=== PATIENT | male | born 1960 | race Caucasian/White ===

== ENCOUNTER 2020-05-25 17:40 | Emergency (ER) | payer SELFPAY ==
[~2020-05-25] VITALS: Ht 182.9 cm; Wt 104.5 kg
--- NOTE | 2020-05-25 18:06 | NUR ---
[facility] FROM [facility]. PT REPORTS DRINKING 1 PINT OF VODKA TODAY AND HAS BEEN THINKING ABOUT KILLING HIMSELF. "I WOULD USE A GUN, I DO NOT HAVE A GUN BUT MY FRIEND HAS ONE" PT IN ROOM IN [facility]. ROOM IS SAFE AND SECURE. SITTER OUTSIDE ROOM. URINE SENT TO LAB.
--- NOTE | 2020-05-25 18:08 | NUR ---
LAB IN ROOM
[2020-05-25 18:27] LABS: AMPHETAMINE SCREEN, URINE Negative (Negative); BARBITURATE SCREEN, URINE Negative (Negative); BENZODIAZEPINE SCREEN, URINE Positive (Negative); CANNABINOID SCREEN, URINE Negative (Negative); COCAINE SCREEN, URINE Negative (Negative); METHADONE SCREEN, URINE Negative (Negative); OPIATE SCREEN, URINE Negative (Negative)
[2020-05-25 18:27] LABS: BASOPHILS # (AUTO) 0.04 x10^3/uL (0-0.1); BASOPHILS % (AUTO) 1 % (0-1); EOSINOPHILS # (AUTO) 0.21 x10^3/uL (0-0.4); EOSINOPHILS % (AUTO) 4 % (1-7); LYMPHOCYTES # (AUTO) 2.36 x10^3/uL (1-3.4); LYMPHOCYTES % (AUTO) 46 % (22-44); MD NO; MEAN CORPUSCULAR HEMOGLOBIN 31.3 pg (27.5-34.5); MEAN PLATELET VOLUME 7.1 fL (7.4-10.4); MONOCYTES # (AUTO) 0.51 x10^3/uL (0.2-0.8); MONOCYTES % (AUTO) 10 % (2-9); NEUTROPHILS # (AUTO) 2.02 x10^3/uL (1.8-6.8); NEUTROPHILS % (AUTO) 39 % (42-75); PLATELET COUNT 185 x10^3/uL (130-400); RED BLOOD COUNT 4.91 x10^6/uL (4.38-5.82); RED CELL DISTRIBUTION WIDTH 15.4 % (9.4-14.8)
[2020-05-25 18:30] LABS: ALANINE AMINOTRANSFERASE 79 U/L (12-78); ALBUMIN 3.6 g/dL (3.4-5.0); ANION GAP 8 mmol/L (5-15); CALCIUM 8.6 mg/dL (8.5-10.1); CHLORIDE 114 mmol/L (98-107); CREATININE 0.84 mg/dL (0.7-1.3); SALICYLATE LEVEL 1.8 mg/dL (2.8-20.0)
[2020-05-25 18:32] LABS: ALKALINE PHOSPHATASE 74 U/L (45-117); BILIRUBIN,TOTAL 0.6 mg/dL (0.2-1.0)
--- NOTE | 2020-05-25 18:53 | NUR ---
REPORT RECIEVED FROM ANNA LOMAS. ASSUMED CARE
--- NOTE | 2020-05-25 19:55 | NUR ---
PT RESTING IN [place] IN SUICIDE SECURED ROOM. SITTER OUT FRONT.
[2020-05-25 22:41] VITALS: BP 125/90
--- NOTE | 2020-05-25 23:13 | NUR ---
PT AWAKE AND AMBULATED TO RESTROOM WITH STEADY GAIT. PT BREATHALYZER 0.142 AT THIS TIME. PT CONT TO STATE " I FEEL SUICIDAL, IM DEPRESSED SHIT AND DON'T GIVE A FUCK!!" PT PROVIDED WITH JUICE AND CRACKERS REQUESTED.
--- NOTE | 2020-05-26 00:28 | NUR ---
PT DRESSING SELF, IS AGREEABLE TO PLAN AT THIS TIME AND CONTRACTS TO SAFETY, NO SI STATEMENTS TO THIS RN
== END 2020-05-26 00:30 | disposition home or self-care (01) ==
LOC: ED 18:10
DX: F32.0 Major depressive disorder, single episode, mild (principal); F10.220 Alcohol dependence with intoxication, uncomplicated; Z72.9 Problem related to lifestyle, unspecified; Y90.9 Presence of alcohol in blood, level not specified
CPT/HCPCS: 36415; 80053; 80307; 85025; 99284

== ENCOUNTER 2020-10-15 13:42 | Inpatient (IN) | payer MEDICAID, OTHER ==
[~2020-10-15] VITALS: Ht 165.1 cm; Wt 101.8 kg
--- NOTE | 2020-10-15 14:08 | NUR ---
PT STATES HE FEELS SOB FOR 2 WEEKS WITH ACCOMPANYING COUGH. PT HAS CP WITH COUGH. PT STATES HE HAS A HX OF BLOOD CLOTS BUT NOT ON BLOOD THINNERS AT THIS TIME.
--- NOTE | 2020-10-15 14:25 | NUR ---
SOB FOR THREE WEEKS.
[2020-10-15 15:03] LABS: BASOPHILS % (AUTO) 1 % (0-1); EOSINOPHILS % (AUTO) 1 % (1-7); LYMPHOCYTES % (AUTO) 26 % (22-44); MEAN CORPUSCULAR HEMOGLOBIN 31.1 pg (27.5-34.5); MEAN CORPUSCULAR HGB CONC 34.7 g/dL (33.2-36.2); MEAN PLATELET VOLUME 7.7 fL (7.4-10.4); MONOCYTES % (AUTO) 18 % (2-9); NEUTROPHILS % (AUTO) 55 % (42-75); PLATELET COUNT 212 x10^3/uL (130-400); RED BLOOD COUNT 5.06 x10^6/uL (4.38-5.82); RED CELL DISTRIBUTION WIDTH 13.1 % (9.4-14.8)
[2020-10-15 15:06] LABS: MD NO
[2020-10-15 15:09] LABS: ALANINE AMINOTRANSFERASE 54 U/L (12-78); ALBUMIN 3.6 g/dL (3.4-5.0); ANION GAP 7 mmol/L (5-15); CHLORIDE 106 mmol/L (98-107); CREATININE 1.23 mg/dL (0.7-1.3)
[2020-10-15 15:16] LABS: ALKALINE PHOSPHATASE 70 U/L (45-117); BILIRUBIN,TOTAL 1.2 mg/dL (0.2-1.0); TOTAL PROTEIN 7.5 g/dL (6.4-8.2); TROPONIN I < 0.015 ng/mL (0.000-0.045)
--- NOTE | 2020-10-15 17:33 | NUR ---
PATIENT HAD 350 ML URINE OUT, NO COMPLICATIONS. DENIES PAIN
[2020-10-15] MEDS ORDERED: OMNIPAQUE 350 MG/ML, 100ML BOTTLE ONE (18:45)
--- NOTE | 2020-10-15 19:05 | NUR ---
BEDSIDE REPORT RECEIVED FROM MIGUEL CASTILLO
--- NOTE | 2020-10-15 19:15 | NUR ---
PT SITTING UPRIGHT ON GURNEY, RESTING COMFRTABLY WITH EYES CLOSED. ERP AT BEDSIDE. ROOM AIR O2 NOTED TO BE 88%, PT PLACED ON 2L SUPPLEMENTAL O2 VIA NASAL CANNULA. PT TOLERATING WELL. O2 SAT NOW 96% AT THIS TIME. PT DENIES ANY NEEDS AT THIS TIME. CALL LIGHT AND PERSONAL BELONGINGS WITHIN REACH.
[2020-10-15] MEDS ORDERED: DEXAMETHASONE 4 MG/ML, 1ML ONE (19:24)
[2020-10-15] MEDS ORDERED: DEXAMETHASONE 4 MG/ML, 1ML IVPush ONE (19:30)
[2020-10-15] MEDS ORDERED: INDO50CA15 PO (19:42)
[2020-10-15] MEDS ORDERED: PALI273S IM (19:43)
[2020-10-15] MEDS ORDERED: AZITHROMYCIN 500 MG in SODIUM CHLORIDE 0.9% 250 ML IV ONE (20:00)
[2020-10-15] MEDS ORDERED: CEFTRIAXONE PMX 1GM/50ML 50 ML IV ONE (20:00)
--- NOTE | 2020-10-15 20:00 | NUR ---
PT SITTING UPRIGHT ON GURNEY, RESTING COMFRTABLY WITH EYES CLOSED. PT DENIES ANY NEEDS AT THIS TIME. CALL LIGHT AND PERSONAL BELONGINGS WITHIN REACH.
[2020-10-15] MEDS ORDERED: CEFTRIAXONE PMX 1GM/50ML 50 ML ONE (20:25)
--- NOTE | 2020-10-15 20:57 | NUR ---
PT PROVIDED FOOD PER REQUEST. PT DENIES ANY ADDITIONAL NEEDS AT THIS TIME. CALL LIGHT AND PERSONAL BELONGINGS WITHIN REACH.
[2020-10-15] MEDS ORDERED: GUAIFENESIN/DM 200-20MG, 10ML UDC PO PRN (21:00)
[2020-10-15] MEDS ORDERED: SODIUM CHLORIDE 0.9% 1,000 ML IV SCH (21:00)
[2020-10-15] MEDS ORDERED: ONDANSETRON ODT 4 MG PO PRN (21:00)
[2020-10-15] MEDS ORDERED: ACETAMINOPHEN 325 MG TABLET PO PRN (21:00)
[2020-10-15] MEDS ORDERED: BISACODYL 10 MG SUPP PR PRN (21:00)
[2020-10-15] MEDS ORDERED: POLYETHYLENE GLYCOL 17 GM PACKET PO PRN (21:00)
[2020-10-15] MEDS: CEFTRIAXONE PMX 1GM/50ML 50 ML IV SCH (21:00)
[2020-10-15] MEDS ORDERED: CHLORDIAZEPOXIDE 25 MG CAPSULE PO PRN (21:00)
[2020-10-15] MEDS ORDERED: MELATONIN 5 MG TABLET PO PRN (21:00)
[2020-10-15] MEDS: AZITHROMYCIN 500 MG in SODIUM CHLORIDE 0.9% 250 ML IV SCH (21:00)
[2020-10-15] MEDS ORDERED: ASCORBIC ACID 500 MG TABLET ONE (21:21)
[2020-10-15] MEDS ORDERED: HEPARIN 5,000 UNITS/ML, 1ML ONE (21:21)
[2020-10-15] MEDS: ASCORBIC ACID 500 MG TABLET PO SCH (21:30)
[2020-10-15] MEDS: HEPARIN 5,000 UNITS/ML, 1ML SQ SCH (21:30)
--- NOTE | 2020-10-15 21:59 | NUR ---
Pt to be admitted to [facility], room 341. Report called to AUBRIE.
[2020-10-15 22:50] VITALS: BP 131/83
[2020-10-16 01:42] VITALS: BP 121/76
[2020-10-16] MEDS: HEPARIN 5,000 UNITS/ML, 1ML SQ SCH ×3 (05:29→21:35)
[2020-10-16 07:23] LABS: BASOPHILS % (AUTO) 1 % (0-1); EOSINOPHILS % (AUTO) 0 % (1-7); LYMPHOCYTES % (AUTO) 34 % (22-44); MEAN CORPUSCULAR HEMOGLOBIN 31.3 pg (27.5-34.5); MEAN CORPUSCULAR HGB CONC 34.8 g/dL (33.2-36.2); MEAN PLATELET VOLUME 7.7 fL (7.4-10.4); MONOCYTES % (AUTO) 14 % (2-9); NEUTROPHILS % (AUTO) 51 % (42-75); PLATELET COUNT 223 x10^3/uL (130-400); RED BLOOD COUNT 4.81 x10^6/uL (4.38-5.82); RED CELL DISTRIBUTION WIDTH 13.1 % (9.4-14.8)
[2020-10-16 07:25] LABS: MD NO
[2020-10-16 07:33] LABS: ANION GAP 6 mmol/L (5-15); CALCIUM 9.3 mg/dL (8.5-10.1); CHLORIDE 110 mmol/L (98-107); CREATININE 0.83 mg/dL (0.7-1.3)
[2020-10-16] MEDS: INDOMETHACIN 50 MG CAPSULE PO SCH (09:00)
[2020-10-16] MEDS: SENNA/DOCUSATE TABLET PO SCH (09:00)
[2020-10-16 09:16] VITALS: BP 127/84
[2020-10-16] MEDS: DEXAMETHASONE 4 MG/ML, 1ML IVPush SCH (09:52)
[2020-10-16] MEDS: ASCORBIC ACID 500 MG TABLET PO SCH ×2 (09:52→21:35)
[2020-10-16] MEDS: CHOLECALCIFEROL 5,000u TAB PO SCH (09:52)
[2020-10-16] MEDS: ZINC SULFATE 220 MG CAPSULE PO SCH (09:53)
[2020-10-16] MEDS ORDERED: NICOTINE 14MG/24 HR PATCH.TD24 TD PRN (11:30)
[2020-10-16 12:26] VITALS: BP 117/71
[2020-10-16 18:51] VITALS: BP 124/73
[2020-10-16 18:54] VITALS: BP 123/78
[2020-10-16] MEDS: CEFTRIAXONE PMX 1GM/50ML 50 ML IV SCH (21:35)
[2020-10-16] MEDS: AZITHROMYCIN 500 MG in SODIUM CHLORIDE 0.9% 250 ML IV SCH (23:26)
[2020-10-17] MEDS: HEPARIN 5,000 UNITS/ML, 1ML SQ SCH ×3 (05:00→21:15)
[2020-10-17 07:50] VITALS: BP 133/76
[2020-10-17] MEDS: SENNA/DOCUSATE TABLET PO SCH (09:00)
[2020-10-17] MEDS: INDOMETHACIN 50 MG CAPSULE PO SCH (09:10)
[2020-10-17] MEDS: THIAMINE 100MG TABLET PO SCH (09:10)
[2020-10-17] MEDS: ZINC SULFATE 220 MG CAPSULE PO SCH (09:10)
[2020-10-17] MEDS: CHOLECALCIFEROL 5,000u TAB PO SCH (09:10)
[2020-10-17] MEDS: ASCORBIC ACID 500 MG TABLET PO SCH ×2 (09:10→21:15)
[2020-10-17] MEDS: DEXAMETHASONE 4 MG/ML, 1ML IVPush SCH (09:10)
[2020-10-17 12:44] VITALS: BP 112/71
[2020-10-17 19:32] VITALS: BP 133/76
[2020-10-17] MEDS: CEFTRIAXONE PMX 1GM/50ML 50 ML IV SCH (21:15)
[2020-10-17] MEDS: LORazepam 2 MG/ML, 1ML IVPush PRN (22:01)
[2020-10-18] MEDS: AZITHROMYCIN 500 MG in SODIUM CHLORIDE 0.9% 250 ML IV SCH ×2 (00:13→23:47)
[2020-10-18 01:37] VITALS: BP 108/60
[2020-10-18] MEDS: HEPARIN 5,000 UNITS/ML, 1ML SQ SCH ×3 (06:24→21:10)
[2020-10-18 06:30] LABS: HCT (SEDRATE) 42.1 % (39.2-51.8)
[2020-10-18 06:32] LABS: D-DIMER 3.83 ug/mlFEU (0.00-0.52); INTERNATIONAL NORMALIZED RATIO 1.07 (0.93-1.1); PROTHROMBIN TIME 11.4 Seconds (9.6-11.5)
[2020-10-18 06:33] LABS: BASOPHILS % (AUTO) 0 % (0-1); CHLORIDE 113 mmol/L (98-107); EOSINOPHILS % (AUTO) 0 % (1-7); LYMPHOCYTES % (AUTO) 20 % (22-44); MEAN CORPUSCULAR HEMOGLOBIN 31.3 pg (27.5-34.5); MEAN CORPUSCULAR HGB CONC 34.7 g/dL (33.2-36.2); MEAN PLATELET VOLUME 8.5 fL (7.4-10.4); MONOCYTES % (AUTO) 11 % (2-9); NEUTROPHILS % (AUTO) 69 % (42-75); PLATELET COUNT 251 x10^3/uL (130-400); RED BLOOD COUNT 4.64 x10^6/uL (4.38-5.82)
[2020-10-18 06:36] LABS: MD NO
[2020-10-18 06:43] LABS: ANION GAP 8 mmol/L (5-15); CALCIUM 8.9 mg/dL (8.5-10.1); CREATININE 0.66 mg/dL (0.7-1.3)
[2020-10-18 06:44] LABS: ALANINE AMINOTRANSFERASE 39 U/L (12-78); ALBUMIN 3.2 g/dL (3.4-5.0); ALKALINE PHOSPHATASE 59 U/L (45-117); BILIRUBIN,TOTAL 0.7 mg/dL (0.2-1.0); TOTAL PROTEIN 6.7 g/dL (6.4-8.2)
[2020-10-18 08:35] VITALS: BP 157/95
[2020-10-18] MEDS: SENNA/DOCUSATE TABLET PO SCH (09:00)
[2020-10-18] MEDS: INDOMETHACIN 50 MG CAPSULE PO SCH (09:01)
[2020-10-18] MEDS: THIAMINE 100MG TABLET PO SCH (09:01)
[2020-10-18] MEDS: CHOLECALCIFEROL 5,000u TAB PO SCH (09:01)
[2020-10-18] MEDS: ASCORBIC ACID 500 MG TABLET PO SCH ×2 (09:01→21:10)
[2020-10-18] MEDS: ZINC SULFATE 220 MG CAPSULE PO SCH (09:01)
[2020-10-18] MEDS: LORazepam 2 MG/ML, 1ML IVPush PRN ×2 (09:12→21:26)
[2020-10-18] MEDS: DEXAMETHASONE 4 MG/ML, 1ML IVPush SCH (09:13)
[2020-10-18 12:54] VITALS: BP 132/81
[2020-10-18] MEDS: CEFTRIAXONE PMX 1GM/50ML 50 ML IV SCH (21:10)
[2020-10-18 21:12] VITALS: BP 128/79
[2020-10-18 23:51] VITALS: BP 134/76
[2020-10-19] MEDS: HEPARIN 5,000 UNITS/ML, 1ML SQ SCH ×3 (05:28→21:02)
[2020-10-19 08:03] LABS: BASOPHILS % (AUTO) 0 % (0-1); EOSINOPHILS % (AUTO) 0 % (1-7); LYMPHOCYTES % (AUTO) 19 % (22-44); MEAN CORPUSCULAR HEMOGLOBIN 30.8 pg (27.5-34.5); MEAN CORPUSCULAR HGB CONC 34.1 g/dL (33.2-36.2); MEAN PLATELET VOLUME 8.2 fL (7.4-10.4); MONOCYTES % (AUTO) 10 % (2-9); NEUTROPHILS % (AUTO) 71 % (42-75); PLATELET COUNT 261 x10^3/uL (130-400); RED BLOOD COUNT 4.55 x10^6/uL (4.38-5.82); RED CELL DISTRIBUTION WIDTH 12.8 % (9.4-14.8)
[2020-10-19 08:05] LABS: MD NO
[2020-10-19 08:07] VITALS: BP 126/78
[2020-10-19 08:08] LABS: ANION GAP 4 mmol/L (5-15); CHLORIDE 114 mmol/L (98-107); CREATININE 0.66 mg/dL (0.7-1.3)
[2020-10-19] MEDS: INDOMETHACIN 50 MG CAPSULE PO SCH (08:25)
[2020-10-19] MEDS: DEXAMETHASONE 4 MG/ML, 1ML IVPush SCH (08:25)
[2020-10-19] MEDS: ZINC SULFATE 220 MG CAPSULE PO SCH (08:25)
[2020-10-19] MEDS: ASCORBIC ACID 500 MG TABLET PO SCH ×2 (08:26→21:03)
[2020-10-19] MEDS: SENNA/DOCUSATE TABLET PO SCH (08:26)
[2020-10-19] MEDS: CHOLECALCIFEROL 5,000u TAB PO SCH (08:26)
[2020-10-19] MEDS: THIAMINE 100MG TABLET PO SCH (08:26)
[2020-10-19] MEDS: LORazepam 2 MG/ML, 1ML IVPush PRN ×2 (08:36→21:17)
[2020-10-19 13:18] VITALS: BP 121/21
[2020-10-19 14:01] VITALS: BP 127/78
[2020-10-19 20:14] VITALS: BP 122/74
[2020-10-19] MEDS: CEFTRIAXONE PMX 1GM/50ML 50 ML IV SCH (21:03)
[2020-10-19] MEDS: AZITHROMYCIN 500 MG in SODIUM CHLORIDE 0.9% 250 ML IV SCH (23:35)
[2020-10-20 00:52] VITALS: BP 111/64
[2020-10-20] MEDS: HEPARIN 5,000 UNITS/ML, 1ML SQ SCH ×2 (05:00→12:45)
[2020-10-20 07:26] VITALS: BP 177/100
[2020-10-20] MEDS: SENNA/DOCUSATE TABLET PO SCH (09:00)
[2020-10-20] MEDS: INDOMETHACIN 50 MG CAPSULE PO SCH (09:11)
[2020-10-20] MEDS: ZINC SULFATE 220 MG CAPSULE PO SCH (09:11)
[2020-10-20] MEDS: ASCORBIC ACID 500 MG TABLET PO SCH (09:11)
[2020-10-20] MEDS: CHOLECALCIFEROL 5,000u TAB PO SCH (09:22)
[2020-10-20] MEDS: THIAMINE 100MG TABLET PO SCH (09:22)
[2020-10-20 12:49] VITALS: BP 144/78
[2020-10-20] MEDS ORDERED: ASCO500T9 PO (13:59)
[2020-10-20] MEDS ORDERED: CEFD300C37 PO (13:59)
[2020-10-20] MEDS ORDERED: THIA100T67 PO (13:59)
[2020-10-20] MEDS ORDERED: NICO-486 TD (13:59)
[2020-10-20] MEDS ORDERED: CHOL500045 PO (13:59)
[2020-10-20] MEDS ORDERED: ZINC220C7 PO (13:59)
== END 2020-10-20 15:40 | disposition home or self-care (01) | DRG 177 ==
LOC: ED 14:18 → EDIP 20:05 → 3N 22:10
PROVIDERS: ADMIT Internal Medicine; ATTEND Hospitalist
DX: U07.1 COVID-19 (principal); J12.82 Pneumonia due to coronavirus disease 2019; J96.01 Acute respiratory failure with hypoxia; F10.10 Alcohol abuse, uncomplicated; F12.90 Cannabis use, unspecified, uncomplicated; F17.210 Nicotine dependence, cigarettes, uncomplicated; F31.9 Bipolar disorder, unspecified; F41.9 Anxiety disorder, unspecified; I10 Essential (primary) hypertension; M10.9 Gout, unspecified; Z59.0 Homelessness; Z63.8 Other specified problems related to primary support group; Z86.711 Personal history of pulmonary embolism; Z86.718 Personal history of other venous thrombosis and embolism
CPT/HCPCS: 36415; 71045; 71275; 80048; 80053; 80074; 82728; 83615; 83735; 83880; 84100; 84145; 84484; 85025; 85379; 85384; 85610; 85651; 87040; 93005; 96374; 96375; 99285; G0378; J0456; J0696; J1100; J1644; Q9967; J2060; J7030; J7050; U0003

== ENCOUNTER 2020-11-12 17:43 | Inpatient (IN) | payer MEDICAID ==
[~2020-11-12] VITALS: Ht 172.7 cm; Wt 104.6 kg
[~2020-11-12 17:43] MED LIST: ASCO500T9 PO; CEFD300C37 PO; CHOL500045 PO; INDO50CA15 PO; NICO-486 TD; PALI273S IM; THIA100T67 PO; ZINC220C7 PO
--- NOTE | 2020-11-12 18:00 | NUR ---
PT BIB EMS FOR INCREASED WEAKNESS AND SOB. 3 WEEKS S/P COVID POSITIVE, NEVER RECIEVED TREATMENT. DENIES CP AT THIS TIME. NOT IN RESP DISTRESS.
--- NOTE | 2020-11-12 18:40 | NUR ---
MD AT BEDSIDE FOR ASSESSMENT. PT RA 84% WHILE SLEEPING, PLACED 2L 02
[2020-11-12] MEDS ORDERED: ALBUTEROL/IPRATROPIUM 2.5MG/0.5MG, 3 ML ONE (18:44)
--- NOTE | 2020-11-12 18:48 | NUR ---
REPORT RECEIVED FROM PRESLEY CASTILLO
--- NOTE | 2020-11-12 18:48 | NUR ---
REPORT TO PATRICK
[2020-11-12 18:55] LABS: BASOPHILS % (AUTO) 1 % (0-1); EOSINOPHILS % (AUTO) 3 % (1-7); LYMPHOCYTES % (AUTO) 37 % (22-44); MD NO; MEAN CORPUSCULAR HEMOGLOBIN 31.4 pg (27.5-34.5); MEAN CORPUSCULAR HGB CONC 34.3 g/dL (33.2-36.2); MEAN PLATELET VOLUME 7.4 fL (7.4-10.4); MONOCYTES % (AUTO) 12 % (2-9); NEUTROPHILS % (AUTO) 46 % (42-75); PLATELET COUNT 190 x10^3/uL (130-400); RED BLOOD COUNT 4.61 x10^6/uL (4.38-5.82); RED CELL DISTRIBUTION WIDTH 14.2 % (9.4-14.8)
--- NOTE | 2020-11-12 18:57 | NUR ---
PT SITTING UPRIGHT ON CARM[place], NORMAN, VSS. YESI NEB STARTED. PT TOLERATING WELL. PT DENIES ANY ADDITIONAL NEEDS AT THIS TIME. CALL LIGHT AND PERSONAL BELONGINGS WITHIN REACH.
[2020-11-12] MEDS ORDERED: ALBUTEROL/IPRATROPIUM 2.5MG/0.5MG, 3 ML NPPB ONE (19:00)
[2020-11-12 19:07] LABS: ALANINE AMINOTRANSFERASE 43 U/L (12-78); ALBUMIN 3.6 g/dL (3.4-5.0); ANION GAP 6 mmol/L (5-15); CALCIUM 8.7 mg/dL (8.5-10.1); CHLORIDE 112 mmol/L (98-107); CREATININE 1.03 mg/dL (0.7-1.3)
[2020-11-12 19:09] LABS: ALKALINE PHOSPHATASE 71 U/L (45-117); BILIRUBIN,TOTAL 0.6 mg/dL (0.2-1.0); TOTAL PROTEIN 6.9 g/dL (6.4-8.2)
--- NOTE | 2020-11-12 20:05 | NUR ---
PT SITTING UPRIGHT ON NORMAN COSME, VSS. PT DENIES ANY NEEDS AT THIS TIME. CALL LIGHT AND PERSONAL BELONGINGS WITHIN REACH.
--- NOTE | 2020-11-12 21:03 | NUR ---
PT SUPINE ON GURNEY, RESTING COMFORTABLY WITH EYES CLOSED. PT UNABLE TO MAINTAIN O2 SAT ABOVE 88% ON ROOM AIR, ERP AWARE. PT DENIES ANY ADDITIONAL NEEDS AT THIS TIME. CALL LIGHT AND BELONGINGS WITHIN REACH
[2020-11-12] MEDS ORDERED: FOLIC ACID 1 MG TABLET PO ONE (21:30)
[2020-11-12] MEDS: DIAZEPAM 10 MG TABLET PO SCH (21:30)
[2020-11-12] MEDS ORDERED: LABETALOL 5MG/ML, 20ML IVPush PRN (21:30)
[2020-11-12] MEDS ORDERED: ONDANSETRON 2MG/ML, 2ML IVPush PRN (21:30)
[2020-11-12] MEDS ORDERED: PHARMACY MAY ADJ FOR RENAL FX MC PRN (21:30)
[2020-11-12] MEDS: DIAZEPAM 5 MG TABLET PO SCH (21:30)
[2020-11-12] MEDS ORDERED: LORazepam 1MG TABLET PO PRN ×4 (21:30)
[2020-11-12] MEDS ORDERED: HYDROcodone/APAP 5/325 TABLET PO PRN (21:30)
[2020-11-12] MEDS ORDERED: ACETAMINOPHEN 325 MG TABLET PO PRN (21:30)
[2020-11-12] MEDS ORDERED: DIAZEPAM 5 MG/ML, 2ML IV ONE (21:30)
[2020-11-12] MEDS ORDERED: LORazepam 0.5MG TABLET PO PRN (21:30)
--- NOTE | 2020-11-12 21:49 | NUR ---
HOSPITALIST AT BEDSIDE
[2020-11-12] MEDS ORDERED: THIAMINE 200 MG in DEXTROSE 5% 50 ML IVPB ONE (22:03)
[2020-11-12] MEDS ORDERED: DIAZEPAM 5 MG TABLET ONE (22:03)
[2020-11-12] MEDS ORDERED: THIAMINE 200 MG in SODIUM CHLORIDE 0.9% 50 ML IVPB ONE (22:12)
--- NOTE | 2020-11-12 22:16 | NUR ---
Pt to be admitted to [facility], room 507. Report called to ROSITA.
[2020-11-12 23:17] VITALS: BP 102/66
[2020-11-12] MEDS: ENOXAPARIN 30 MG/0.3 ML SQ SCH (23:25)
[2020-11-13 03:16] VITALS: BP 115/62
[2020-11-13] MEDS: DIAZEPAM 10 MG TABLET PO SCH ×3 (03:47→15:30)
[2020-11-13 05:29] LABS: BASOPHILS % (AUTO) 2 % (0-1); EOSINOPHILS % (AUTO) 6 % (1-7); LYMPHOCYTES % (AUTO) 37 % (22-44); MEAN CORPUSCULAR HEMOGLOBIN 31.2 pg (27.5-34.5); MEAN CORPUSCULAR HGB CONC 34.3 g/dL (33.2-36.2); MEAN PLATELET VOLUME 7.6 fL (7.4-10.4); MONOCYTES % (AUTO) 19 % (2-9); NEUTROPHILS % (AUTO) 35 % (42-75); PLATELET COUNT 168 x10^3/uL (130-400); RED CELL DISTRIBUTION WIDTH 14.5 % (9.4-14.8)
[2020-11-13 05:40] LABS: ALANINE AMINOTRANSFERASE 37 U/L (12-78); ALBUMIN 3.4 g/dL (3.4-5.0); CALCIUM 9.2 mg/dL (8.5-10.1); CHLORIDE 112 mmol/L (98-107); CREATININE 0.98 mg/dL (0.7-1.3)
[2020-11-13 05:42] LABS: ALKALINE PHOSPHATASE 64 U/L (45-117); BILIRUBIN,TOTAL 0.7 mg/dL (0.2-1.0); TOTAL PROTEIN 6.2 g/dL (6.4-8.2)
[2020-11-13] MEDS ORDERED: ALBUTEROL-IPRATROPIUM MDI INH INH SCH (06:00)
[2020-11-13 06:14] LABS: ANION GAP 4 mmol/L (5-15)
[2020-11-13 06:26] LABS: MD SCAN
[2020-11-13 08:25] VITALS: BP 105/65
[2020-11-13] MEDS ORDERED: ALBUTEROL-IPRATROPIUM MDI INH INH PRN (08:30)
[2020-11-13] MEDS: MULTIVITAMINS/MINERALS TABLET PO SCH (09:42)
[2020-11-13] MEDS: ASCORBIC ACID 500 MG TABLET PO SCH ×2 (09:42→19:47)
[2020-11-13] MEDS: ENOXAPARIN 30 MG/0.3 ML SQ SCH ×2 (09:42→21:01)
[2020-11-13] MEDS: ZINC SULFATE 220 MG CAPSULE PO SCH (09:42)
[2020-11-13] MEDS: DEXAMETHASONE 4 MG TABLET PO SCH ×2 (09:42→15:45)
[2020-11-13] MEDS ORDERED: DIAZEPAM 5 MG TABLET ONE ×2 (09:49→15:41)
[2020-11-13 12:44] LABS: TROPONIN I < 0.015 ng/mL (0.000-0.045)
[2020-11-13 14:00] VITALS: BP 107/66
[2020-11-13 16:25] VITALS: BP 107/66
[2020-11-13 17:48] LABS: TROPONIN I < 0.015 ng/mL (0.000-0.045)
[2020-11-13 19:44] VITALS: BP 124/82
[2020-11-13] MEDS: DIAZEPAM 5 MG TABLET PO SCH (19:47)
[2020-11-13 23:22] VITALS: BP 110/72
[2020-11-14] MEDS: DIAZEPAM 5 MG TABLET PO SCH ×2 (03:15→09:30)
[2020-11-14 03:16] VITALS: BP 126/82
[2020-11-14 05:19] LABS: BASOPHILS % (AUTO) 1 % (0-1); EOSINOPHILS % (AUTO) 0 % (1-7); LYMPHOCYTES % (AUTO) 13 % (22-44); MEAN CORPUSCULAR HEMOGLOBIN 31.8 pg (27.5-34.5); MONOCYTES % (AUTO) 5 % (2-9); NEUTROPHILS % (AUTO) 81 % (42-75); PLATELET COUNT 208 x10^3/uL (130-400); RED CELL DISTRIBUTION WIDTH 14.2 % (9.4-14.8)
[2020-11-14 05:20] LABS: MD NO
[2020-11-14 05:28] LABS: ANION GAP 4 mmol/L (5-15); CALCIUM 9.5 mg/dL (8.5-10.1); CHLORIDE 108 mmol/L (98-107)
[2020-11-14 05:29] LABS: CREATININE 0.85 mg/dL (0.7-1.3)
[2020-11-14 07:15] VITALS: BP 123/70
[2020-11-14] MEDS ORDERED: REGADENOSON 0.4 MG/5 ML SYRINGE ONE (08:05)
[2020-11-14] MEDS ORDERED: OMNIPAQUE 350 MG/ML, 75ML BOTTLE ONE (08:53)
[2020-11-14] MEDS ORDERED: THIAMINE 100 MG in DEXTROSE 5% 50 ML IVPB SCH (09:00)
[2020-11-14] MEDS: ASCORBIC ACID 500 MG TABLET PO SCH (12:30)
[2020-11-14] MEDS: MULTIVITAMINS/MINERALS TABLET PO SCH (12:30)
[2020-11-14] MEDS: ZINC SULFATE 220 MG CAPSULE PO SCH (12:30)
[2020-11-14] MEDS: ENOXAPARIN 30 MG/0.3 ML SQ SCH (12:31)
[2020-11-14] MEDS: DEXAMETHASONE 4 MG TABLET PO SCH (12:39)
[2020-11-14 13:03] VITALS: BP 144/98
[2020-11-14] MEDS ORDERED: DEXA4TAB66 PO (13:07)
[2020-11-14] MEDS ORDERED: THIAMINE 100MG TABLET PO SCH (13:15)
== END 2020-11-14 14:55 | disposition home or self-care (01) | DRG 189 ==
LOC: ED 21:17 → INTOOBSV 21:18 → OBSVTOIN 21:18 → EDIP 21:18 → 5SO 22:22 → DCLOUNGE 11-14 14:46
PROVIDERS: ADMIT Internal Medicine; ATTEND Internal Medicine
DX: J96.21 Acute and chronic respiratory failure with hypoxia (principal); F10.10 Alcohol abuse, uncomplicated; F17.210 Nicotine dependence, cigarettes, uncomplicated; G47.33 Obstructive sleep apnea (adult) (pediatric); F32.9 Major depressive disorder, single episode, unspecified; M10.9 Gout, unspecified; Z20.822 Contact with and (suspected) exposure to COVID-19; Z86.711 Personal history of pulmonary embolism; Z86.718 Personal history of other venous thrombosis and embolism; Z82.49 Family history of ischemic heart disease and other diseases of the circulatory system; Z83.3 Family history of diabetes mellitus
CPT/HCPCS: 36415; 71045; 71275; 78452; 80048; 80053; 80320; 83615; 83735; 84100; 84145; 84439; 84443; 84484; 85025; 85379; 93017; 93970; 96365; 99285; G0378; J1650; J2785; J3411; Q9967; A9502; G0480; U0003